=== PATIENT | male | born 1955 ===

== ENCOUNTER 2016-11-25 19:37 | Emergency (ER) | payer BC ==
[2016-11-25 20:16] VITALS: BMI 22.7
--- NOTE | 2016-11-25 20:37 | ED PDOC ---
Arrival/HPI - General Chief Complaint: Medical Clearance Time Seen by Provider: 11/25/16 20:26 Historian: Patient - History of Present Illness Narrative History of Present Illness (Text): 11/25/16 20:34 61 year old male presents to the emergency department with suspected dislocated jaw after trying to eat a burger prior to arrival. Patient states he went to open his mouth and heard a pop. He states this happened to him once a few years ago. Currently patient reports jaw pain. No other complaints at this time. Time/Duration: Prior to Arrival Symptom Course: Unchanged Activities at Onset: Eating Associated Symptoms (Text): None Past Medical History - Provider Review Nursing Documentation Reviewed: Yes - Cardiac Hx Cardiac Disorders: No - Pulmonary Hx Respiratory Disorders: No - Neurological Hx Neurological Disorder: No - HEENT Hx HEENT Disorder: No - Renal Hx Renal Disorder: No - Endocrine/Metabolic Hx Endocrine Disorders: No - Hematological/Oncological Hx Blood Disorders: No - Integumentary Hx Dermatological Disorder: No - Musculoskeletal/Rheumatological Other/Comment: jaw dislocation 5 yrs ago - Gastrointestinal Hx Gastrointestinal Disorders: No - Genitourinary/Gynecological Hx Genitourinary Disorders: No - Psychiatric Hx Psychophysiologic Disorder: No Hx Substance Use: No - Anesthesia Hx Anesthesia: No Family/Social History - Physician Review Nursing Documentation Reviewed: Yes Family/Social History: Unknown Family HX Smoking Status: Light Smoker < 10 Cigarettes Daily Hx Alcohol Use: No Hx Substance Use: No Allergies/Home Meds Allergies/Adverse Reactions: Allergies No Known Allergies Allergy (Verified 11/25/16 20:16) Home Medications: Home Meds Medication Instructions Recorded Confirmed Meclizine [Meclizine*] 25 mg PO PRN PRN 11/25/16 11/25/16 Review of Systems - Review of Systems Eyes: absent: Vision Changes ENT: TMJ Pain Respiratory: absent: SOB Cardiovascular: absent: Chest Pain Gastrointestinal: absent: Vomiting Neurological: absent: Headache, Dizziness Physical Exam Vital Signs Reviewed: Yes Vital Signs Temp Pulse Resp BP Pulse Ox 11/25/16 22:03 58 L 16 122/77 100 11/25/16 21:38 98.1 F 58 L 16 122/77 100 11/25/16 20:17 97.9 F 51 L 14 141/84 97 Temperature: Afebrile Blood Pressure: Normal Pulse: Bradycardic Respiratory Rate: Normal Appearance: Positive for: Well-Appearing, Non-Toxic, Uncomfortable Pain Distress: Mild Mental Status: Positive for: Alert and Oriented X 3 - Systems Exam Head: Present: Atraumatic, Normocephalic Conjunctiva: Present: Normal Mouth: Present: Other (Right sided TMJ dislocation. Patient unable to close mouth.) Neck: Present: Normal Range of Motion Neurological: Present: GCS=15, CN II-XII Intact Skin: Present: Warm, Dry, Normal Color. No: Rashes Psychiatric: Present: Alert, Oriented x 3 Medical Decision Making ED Course and Treatment: PROCEDURE: PROCEDURAL SEDATION Performed by the emergency provider Start Time: 21:40 Consent: Informed consent, after discussion of the risks, benefits, and alternatives to the procedure, was obtained. Timeout: A timeout to verify the correct patient, procedure, and site was performed immediately prior to the procedure. Indication: Jaw dislocation Mallampati Classification: 2 Last Meal: The patient ate 2 hours ago. Patient History: History of adverse reactions involving sedation/anesthesia: No patient or family history of adverse reaction Patients H & P remains current: Yes History and Physical and Current Medication list reviewed: Yes Appropriate Candidate: Based on history and airway assessment, patient is an appropriate candidate for Moderate / Procedural Sedation: Yes Preparation: Cardiac monitoring and continuous pulse oximetry. IV access obtained. Suction immediately available at bedside. Patient Position: Supine Anesthesia: Patient was given propofol with appropriate sedation. See MAR for details. Post-procedure: Patient tolerated the procedure well with no immediate complications. Patient recovered from sedation uneventfully and did not require airway intervention. Post anesthesia the patient's vital signs including respiratory function, cardiovascular function, and temperature were stable. The patient's pain post anesthesia was assessed as none. The patient was assessed for nausea post-sedation and the patient denies it. At discharge patient back to baseline mental status and able to tolerate PO fluids in Emergency Department End Time: 21:50 PROCEDURE: REDUCTION Performed by the emergency provider Time: 21:45 Consent: Informed consent, after discussion of the risks, benefits, and alternatives to the procedure, was obtained. Timeout: A timeout to verify the correct patient, procedure, and site was performed immediately prior to the procedure. Indication: TMJ dislocation Location: Right TMJ Sedation: See MAR for details. Technique: posterior and inferior pressure Confirmation: clinically the pts mandible is reduced Post-procedure: Patient tolerated the procedure well with no immediate complications. The reduction site was immobilized with karl bandage. 11/25/16 22:11 pt now completely awake and alert. denies any pain. disc plan for f/u and rtr. all questions and concerns addressed at this time. - Medication Orders Current Medication Orders: Discontinued Medications Fentanyl (Fentanyl) 50 mcg IVP ONCE ONE Stop: 11/25/16 21:02 Sodium Chloride (Sodium Chloride 0.9%) 1,000 mls @ 999 mls/hr IV .Q1H1M STA Stop: 11/25/16 22:02 Last Admin: 11/25/16 21:29 Dose: 999 MLS/HR eMAR Start Stop Document 11/25/16 21:29 EKEOO (Rec: 11/25/16 21:29 EKEOO [id number]) Intravenous Solution Start Date 11/25/16 Start Time 21:29 Propofol (Diprivan) 200 mg IVP ONCE ONE Stop: 11/25/16 21:02 - Scribe Statement The provider has reviewed the documentation as recorded by the Dennis Moncada Provider Scribe Attestation: All medical record entries made by the Vinayakibramin were at my direction and personally dictated by me. I have reviewed the chart and agree that the record accurately reflects my personal performance of the history, physical exam, medical decision making, and the department course for this patient. I have also personally directed, reviewed, and agree with the discharge instructions and disposition. Disposition/Present on Arrival - Present on Arrival Any Indicators Present on Arrival: No History of DVT/PE: No History of Uncontrolled Diabetes: No Urinary Catheter: No History of Decub. Ulcer: No History Surgical Site Infection Following: None - Disposition Have Diagnosis and Disposition been Completed?: Yes Diagnosis: TMJ (dislocation of temporomandibular joint) Disposition: HOME/ ROUTINE Disposition Time: 22:13 Condition: IMPROVED Discharge Instructions (ExitCare): Mandibular Dislocation (ED), Moderate Sedation (ED) Additional Instructions: Please follow up with your doctor. Return to the ER for any worsening symptoms, pain that is not relieved by [id number] medication, or for any other concerns. Referrals: Prince Dumont [Primary Care Provider] - Follow up with primary
[2016-11-25] MEDS ORDERED: Morphine 4 mg/ml ISec IM STA (20:39)
[2016-11-25] MEDS ORDERED: Propofol 10 mg/ml Inj (20 ML) IVP ONE (21:01)
[2016-11-25] MEDS ORDERED: Sodium Chloride 0.9% 1,000 ML IV STA (21:02)
[2016-11-25 22:02] VITALS: BP 122/77; PULSE 58; RESP 16; TEMP 98.1; O2SAT 100
== END 2016-11-25 21:45 | disposition home or self-care (01) ==
LOC: ED 19:37
DX: M26.601 Right temporomandibular joint disorder, unspecified (principal); S03.01XA Dislocation of jaw, right side, initial encounter; X58.XXXA Exposure to other specified factors, initial encounter
CPT/HCPCS: 21480; 99282; J7040

== ENCOUNTER 2018-02-27 07:51 | Emergency (ER) | payer BC ==
[2018-02-27 08:00] VITALS: BMI 23.5
[2018-02-27 08:03] VITALS: RESP 18
--- NOTE | 2018-02-27 08:08 | ED PDOC ---
Arrival/HPI - General Historian: Patient - History of Present Illness Time/Duration: Prior to Arrival Symptom Onset: Sudden Quality: Aching, Other (Pinching) Severity Level: 6 Activities at Onset: Rest <Lilliana Scales - Last Filed: 02/27/18 09:48> <JacobSandeep - Last Filed: 02/27/18 10:20> - General Chief Complaint: Upper Extremity Problem/Injury Time Seen by Provider: 02/27/18 07:57 - History of Present Illness Narrative History of Present Illness (Text): 02/27/18 08:07 Patient is a 62 year old male with no significant past medical history who presented to the ED for left posterior shoulder pain that woke him up out of his sleep. Patient never experienced this pain before. Describes it as a pinching pain that has worsened in intensity since it started. Pain is constant in nature. Took two 200mg tablets of Advil with no relief in symptoms. Pain is non-radiating, denies any aggravating or alleviating factors. Denies any trauma or inciting events. Denies headaches, dizziness, cp, palpitations, neck pain, diaphoresis, nausea/vomiting, sob, abdominal pain, numbness/tingling, urinary symptoms, changes in bowel habits, recent travel. Allergies: NKDA Medications: Denies Medical History: Vertigo Surgical History: Denies Social History: Former smoker, quit 6 months ago, smoked 1ppd for past 20 years ; denies alcohol or drug use Family History: Mother - Diabetes Mellitus (Lilliana Scales) Past Medical History - Provider Review Nursing Documentation Reviewed: Yes - Travel History Have you recently traveled outside [place] w/in the past 3 mons?: No - Past History Past History: No Previous - Infectious Disease Hx of Infectious Diseases: None - Cardiac Hx Cardiac Disorders: No Hx Angina: No - Pulmonary Hx Respiratory Disorders: No - Neurological Hx Neurological Disorder: No - HEENT Hx HEENT Disorder: No - Renal Hx Renal Disorder: No - Endocrine/Metabolic Hx Endocrine Disorders: No - Hematological/Oncological Hx Blood Disorders: No - Integumentary Hx Dermatological Disorder: No - Musculoskeletal/Rheumatological Other/Comment: jaw dislocation 5 yrs ago - Gastrointestinal Hx Gastrointestinal Disorders: No - Genitourinary/Gynecological Hx Genitourinary Disorders: No - Psychiatric Hx Psychophysiologic Disorder: No Hx Substance Use: No - Anesthesia Hx Anesthesia: No <Lilliana Scales - Last Filed: 02/27/18 09:48> Family/Social History - Physician Review Nursing Documentation Reviewed: Yes Family/Social History: Diabetes Smoking Status: Former Smoker Hx Alcohol Use: No Hx Substance Use: No <Lilliana Scales - Last Filed: 02/27/18 09:48> Allergies/Home Meds <Lilliana Scales - Last Filed: 02/27/18 09:48> <Sandeep James - Last Filed: 02/27/18 10:20> Allergies/Adverse Reactions: Allergies No Known Allergies Allergy (Verified 11/25/16 20:16) Home Medications: Home Meds Medication Instructions Recorded Confirmed Meclizine [Meclizine*] 25 mg PO PRN PRN 11/25/16 11/25/16 Review of Systems - Review of Systems Constitutional: Normal. absent: Fatigue, Fevers Eyes: Normal. absent: Vision Changes ENT: Normal. absent: Hearing Changes Respiratory: Normal. absent: SOB, Cough, Wheezing Cardiovascular: Normal. absent: Chest Pain, Palpitations, Edema Gastrointestinal: Normal. absent: Abdominal Pain, Constipation, Diarrhea, Nausea, Vomiting Genitourinary Male: Normal. absent: Dysuria, Frequency Musculoskeletal: Normal. absent: Neck Pain, Myalgias Skin: Normal. absent: Rash, Pruritis, Skin Lesions Neurological: absent: Headache, Dizziness, Focal Weakness Endocrine: Normal. absent: Diaphoresis <Lilliana Scales - Last Filed: 02/27/18 09:48> Physical Exam Vital Signs Reviewed: Yes Appearance: Positive for: Well-Appearing, Comfortable Pain Distress: Mild Mental Status: Positive for: Alert and Oriented X 3 - Systems Exam Head: Present: Atraumatic, Normocephalic Pupils: Present: PERRL Extroacular Muscles: Present: EOMI Conjunctiva: Present: Normal Mouth: Present: Moist Mucous Membranes Neck: Present: Normal Range of Motion, Other (Spurling test negative) Respiratory/Chest: Present: Clear to Auscultation, Good Air Exchange. No: Wheezes, Rales, Rhonchi Cardiovascular: Present: Regular Rate and Rhythm, Normal S1, S2, Bradycardic. No: Murmurs Abdomen: Present: Normal Bowel Sounds. No: Tenderness Upper Extremity: Present: Normal Inspection, Normal ROM, NORMAL PULSES, Neurovascularly Intact, Other (Apleys scratch test negative, Larson Johnnie test negative ). No: Edema, Tenderness Lower Extremity: Present: Normal Inspection, NORMAL PULSES, Neurovascularly Intact. No: CALF TENDERNESS, Swelling Neurological: Present: CN II-XII Intact, Speech Normal Skin: Present: Warm, Dry, Normal Color Psychiatric: Present: Alert, Oriented x 3, Normal Insight <Lillaina Scales - Last Filed: 02/27/18 09:48> Vital Signs Temp Pulse Resp BP Pulse Ox 02/27/18 07:52 97.6 F 80 18 146/99 H 97 Medical Decision Making <Lilliana Scales - Last Filed: 02/27/18 09:48> <Sandeep James - Last Filed: 02/27/18 10:20> ED Course and Treatment: 02/27/18 08:27 Patient Seen With Resident: In agreement with resident note which contains more details about the patient. Patient was seen and evaluated with resident. Came up with plan and treatment together.. 02/27/18 09:02 Sinus Bradycardia at 53 bpm. Normal [place]. No acute ST/T wave abnormalities. 02/27/18 10:10 patient seen for left upper back "pinching", acute onset, no weakness or numbness. no trauma involved. no cardiopulmonary symptoms. xrays consistent with cervical spine DJD and may likely explain patient's symptoms suggestive of cervical radiculopathy. refer to pcp for fruther workup and eval including recommended MRI c-spine if persistent symptoms. (Sandeep James) - RAD Interpretation Radiology Orders: 02/27/18 08:21 SHOULDER LEFT [RAD] Stat 02/27/18 08:39 CERVICAL SPINE >18YR W/OBLIQUE [RAD] Stat Disposition/Present on Arrival - Present on Arrival Any Indicators Present on Arrival: No History of DVT/PE: No History of Uncontrolled Diabetes: No Urinary Catheter: No History of Decub. Ulcer: No History Surgical Site Infection Following: None <YordyLilliana - Last Filed: 02/27/18 09:48> - Present on Arrival Any Indicators Present on Arrival: No - Disposition Have Diagnosis and Disposition been Completed?: Yes Disposition Time: 10:20 Patient Plan: Discharge <Sandeep James - Last Filed: 02/27/18 10:20> - Disposition Diagnosis: Radiculopathy of cervical spine Disposition: HOME/ ROUTINE Patient Problems: Current Active Problems Problem Status Onset Radiculopathy of cervical spine Acute Condition: STABLE Discharge Instructions (ExitCare): Radiculopathy (DC) Print Language: HEBREW Additional Instructions: ARLEY REDDY JR, thank you for letting us take care of you today. Your provider was Sandeep James DO and you were treated for UPPER LEFT SHOULDER PAIN. The emergency medical care you received today was directed at your acute symptoms. If you were prescribed any medication, please fill it and take as directed. It may take several days for your symptoms to resolve. Return to the Emergency Department if your symptoms worsen, do not improve, or if you have any other problems. Please contact your doctor or call one of the physicians/clinics you have been referred to that are listed on the Patient Visit Information form that is included in your discharge packet. Bring any paperwork you were given at discharge with you along with any medications you are taking to your follow up visit. Our treatment cannot replace ongoing medical care by a primary care provider outside of the emergency department. Thank you for allowing the [facility] team to be part of your care today. If you had an X-Ray or CT scan: A Radiologist will review the ED reading if any change in treatment is needed we will contact you. If you had a blood, urine, or wound culture: It will take several days for the results, if any change in treatment is needed we will contact you. If you had an STI test: It will take 48 hours for the results. Please call after 1 week if you have not heard back. Prescriptions: Cyclobenzaprine [Flexeril] 5 mg PO TID #15 tab Ibuprofen [Motrin Tab] 600 mg PO QID #42 tab Forms: [employer] (Lithuanian)
--- NOTE | 2018-02-27 10:04 | RAD ---
Date of service: 02/27/2018 PROCEDURE: Cervical Spine Radiographs. HISTORY: Pain. COMPARISON: None. FINDINGS: BONES: There is normal alignment of the cervical vertebral bodies. There is straightening of the cervical spine with loss of normal cervical lordosis. Vertebral height is normal. Bone mineralization is normal. There is no acute fracture or traumatic anterior listhesis. The craniocervical junction is normal. The atlantoaxial joint normal. DISC SPACES: There is mild multilevel degenerative disc disease with anterior spurring, mild reduced disc heights and multilevel facet arthropathy, worse at C6-7. The neural foramina are patent. SOFT TISSUES: Normal. No prevertebral soft tissue swelling. OTHER FINDINGS: None. IMPRESSION: Mild multilevel degenerative disc disease, worse at C6-7. Straightening of the cervical spine may be positional or related to muscle spasm.
--- NOTE | 2018-02-27 10:06 | RAD ---
Date of service: 02/27/2018 PROCEDURE: Radiographs of the Left Shoulder HISTORY: Pain COMPARISON: No prior. FINDINGS: BONES: Bone alignment and mineralization are normal. There is no acute displaced fracture or bone destruction. JOINTS: Normal. Glenohumeral and acromioclavicular joints preserved. SOFT TISSUES: Normal. OTHER FINDINGS: None. IMPRESSION: No acute fracture or dislocation.
[2018-02-27 10:35] VITALS: BP 135/84; PULSE 78; TEMP 98; O2SAT 98
--- NOTE | 2018-02-28 12:49 | CARD ---
APPROVED REPORT Date of service: 02/27/2018 EKG Measurement Heart [id number] <Conclusion> Sinus bradycardia Otherwise normal ECG
== END 2018-02-27 10:34 | disposition home or self-care (01) ==
LOC: ED 07:51
DX: M54.12 Radiculopathy, cervical region (principal)